=== PATIENT | female | born 1950 | race Caucasian/White ===

== ENCOUNTER 2023-08-09 14:50 | Emergency (ER) | payer MEDICARE, BC ==
[~2023-08-09] VITALS: Ht 162.6 cm; Wt 60.2 kg
[2023-08-09] MEDS ORDERED: VALA1TAB5 (15:05)
[2023-08-09] MEDS ORDERED: ATOR1TAB19 (15:05)
[2023-08-09] MEDS ORDERED: LEVO88TA3 (15:05)
[2023-08-09] MEDS: NORCO, ANEXSIA 5/325MG TABLET (HYDROcodone/ACETAMINOPHEN) PO ONE (16:59)
[2023-08-09] MEDS ORDERED: HYDR-3713 PO (17:56)
[2023-08-09 18:03] VITALS: BP 156/84; TEMP 97.6; O2SAT 99
== END 2023-08-09 18:05 | disposition home or self-care (01) ==
LOC: M ED 14:50
DX: S52.571A Other intraarticular fracture of lower end of right radius, initial encounter for closed fracture (principal); W19.XXXA Unspecified fall, initial encounter; Y92.009 Unspecified place in unspecified non-institutional (private) residence as the place of occurrence of the external cause; Y93.9 Activity, unspecified; Y99.9 Unspecified external cause status